=== PATIENT | female | born 1995 | race Caucasian/White ===

== ENCOUNTER 2017-04-04 06:46 | Inpatient (IN) ==
[2017-04-04] MEDS: LACTATED RINGERS 1,000 ML IV SCH (07:20)
[2017-04-04] MEDS ORDERED: ONDANSETRON 4 MG/2 ML VIAL IV PRN (08:38)
[2017-04-04] MEDS ORDERED: FAMOTIDINE 20 MG/2 ML VIAL IV ONE (09:08)
[2017-04-04] MEDS ORDERED: CITRIC ACID/SODIUM CITRATE 30 ML UDCUP PO ONE ×2 (09:17→14:00)
[2017-04-04 09:45] LABS: Basophils % 0.3 % (0.0-0.8); Eosinophils # 0.1 10*3/uL (0.0-0.87); Eosinophils % 0.5 % (0.00-10.9); Hematocrit 31.1 VOL% (35.7-47.0); Hemoglobin 10.5 GM/DL (12.0-16.0); Immature Granulocytes % 0.7 %; Immature Granulocytes Absolute 0.07 #; Lymphocytes # 1.5 10*3/uL (1.4-4.0); Lymphocytes % 16.1 % (21.3-54.2); Mean Corpuscular HGB Conc 33.8 GM/DL (32-36); Mean Corpuscular Hemoglobin 27 PG (27-34); Mean Corpuscular Volume 79.1 FL (87-102); Mean Platelet Volume 10.2 FL (9.6-12.0); Monocytes # 0.8 10*3/uL (0.11-0.8); Monocytes % 7.9 % (1.7-12.7); Neutrophils % 74.5 % (38.7-73.9); Platelet Count 219 T/CUMM (130-400); Red Blood Count 3.93 MC/CUMM (3.8-5.5); Red Cell Distribution Width 13.4 % (9.3-17.3); White Blood Count 9.5 T/CUMM (4-12)
[2017-04-04 10:15] LABS: Albumin 2.5 G/DL (3.4-5.0); Bilirubin,Total 0.8 MG/DL (0.2-1.0); Osmolality,Calculated 273.5 MOS/KG (273-304); Potassium 3.7 MMOL/L (3.5-5.1); Total Protein 5.7 G/DL (6.4-8.3)
[2017-04-04] MEDS ORDERED: PHENYLEPHRINE 1 MG/10 ML SYRINGE IV ONE (12:00)
[2017-04-04] MEDS ORDERED: ONDANSETRON 4 MG/2 ML VIAL ONE (12:00)
[2017-04-04] MEDS ORDERED: OXYTOCIN/LR 20 UNIT/1,000 ML BAG IV ONE (14:11)
[2017-04-04] MEDS ORDERED: ceFAZolin 2,000 MG in PREMIX 1 EACH IV ONE (14:11)
--- NOTE | 2017-04-04 14:27 | History and Physical Update ---
History and Physical Update - Dictation Physical: refer to scanned H&P - Physical Exam Mental Status: alert and oriented Heart: regular rate and rhythm Lung: clear to auscultation Abdomen: within normal limits Vitals: within normal limits
[2017-04-04] MEDS ORDERED: RHO(D) IMMUNE GLOBULIN 300 MCG SYRINGE IM ONE (15:01)
[2017-04-04] MEDS ORDERED: ACETAMINOPHEN 325 MG TABLET PO PRN (15:01)
--- NOTE | 2017-04-04 15:05 | Operative Note ---
Pre-op diagnosis: Previous delivery, for repeat Post-op diagnosis: same Procedure: Repeat low transverse delivery Patient was taken the operating room, administered a spinal anesthetic and sterilely prepped and draped in the supine position with a Gottlieb catheter in place. A lower abdominal transverse incision was made through the skin and carried downward to the anterior rectus sheath. Individual bleeding sites were fulgurated for hemostasis. The anterior rectus sheath was incised transversely and dissected away from the underlying rectus muscle. Rectus muscle was divided in the midline and retracted bilaterally. Peritoneum was elevated with a pair of hemostats and the peritoneum incised with Metzenbaum scissors and extended longitudinally under direct visualization. 4 blade was placed in the lower portion of the incision and vesicouterine fold identified. This was elevated and incised transversely with Metzenbaum scissors and the bladder dissected away from the lower uterine segment. Transverse incision was made with scissors through the lower uterine segment and membranes were reached the myometrium was expanded digitally with pressure and the membranes ruptured with an Allis clamp. A hand was grasp into the lower uterine segment and the head grasped and delivered into the incision. The head was stabilized with a single forceps blade and delivered with fundal pressure. The nasopharynx was suctioned and the cord clamped and cut. was transferred to the warmer. The placenta was delivered manually and Pitocin drip administered. The uterus was externalized and placed on traction. Inner layer of the myometrium was closed with a running interlocking stitch of 1-0 Vicryl. The outer layer was closed with a running stitch of 1-0 Vicryl. The vesicouterine fold was closed with running stitch of 1-0 Vicryl. Uterus was replaced in the abdomen and the abdomen irrigated with normal saline. The peritoneum was elevated and closed with running suture of 2-0 Vicryl. Rectus muscle was reapproximated in the midline with running stitch of 2-0 Vicryl. The anterior rectus sheath was closed with a running interlocking suture of 1-0 Vicryl in laterally and meeting in the midline. Stay sutures were placed either side of the midline time. The fat was irrigated and closed with running suture of 2-0 Vicryl. Again was closed with a running subcuticular suture of 3-0 Vicryl. Dermabond was placed on the wound. Anesthesia: spinal Surgeon / Physician: Logan Colunga Condition: stable Disposition: post procedure unit Results - Labs CBC & BMP: 04/04/17 09:04 04/04/17 09:04 Discharge Plan - Discharge Medications No Action No Known Home Medications [No Known Home Medications] - Follow Up or Referral - Forms/Instructions
[2017-04-04] MEDS ORDERED: TISSUE ADHESIVE 1 EACH APPLICATOR TOP ONE (15:27)
[2017-04-04] MEDS ORDERED: fentaNYL 100 MCG/2 ML VIAL ONE (16:32)
[2017-04-04] MEDS ORDERED: MORPHINE 10 MG/10 ML VIAL ONE (16:32)
[2017-04-04] MEDS ORDERED: ePHEDrine 50 MG/ML AMP ONE (16:32)
--- NOTE | 2017-04-04 16:40 | Anesthesia Post-Op ---
Anesthesia Post OP - Post Ansesthetic Evaluation Patient seen in post op: Yes Resp: within normal limits CV: within normal limits Mental: within normal limits Temp: within normal limits Jeit-[id number]: within normal limits Nausea and Vomiting: within normal limits Pain: within normal limits
[2017-04-04] MEDS: IBUPROFEN 800 MG TABLET PO PRN (19:20)
[2017-04-04] MEDS: DOCUSATE SODIUM 100 MG CAPSULE PO SCH (22:24)
[2017-04-05] MEDS: LACTATED RINGERS 1,000 ML IV SCH ×4 (00:19→06:41)
[2017-04-05 05:55] LABS: Basophils % 0.2 % (0.0-0.8); Eosinophils % 0.4 % (0.00-10.9); Hematocrit 26.7 VOL% (35.7-47.0); Hemoglobin 8.9 GM/DL (12.0-16.0); Immature Granulocytes % 0.5 %; Immature Granulocytes Absolute 0.05 #; Lymphocytes # 1.6 10*3/uL (1.4-4.0); Lymphocytes % 16.4 % (21.3-54.2); Mean Corpuscular HGB Conc 33.3 GM/DL (32-36); Mean Corpuscular Hemoglobin 27 PG (27-34); Mean Corpuscular Volume 79.9 FL (87-102); Mean Platelet Volume 10.1 FL (9.6-12.0); Monocytes # 0.8 10*3/uL (0.11-0.8); Monocytes % 8.6 % (1.7-12.7); Neutrophils % 73.9 % (38.7-73.9); Platelet Count 198 T/CUMM (130-400); Red Blood Count 3.34 MC/CUMM (3.8-5.5); Red Cell Distribution Width 13.6 % (9.3-17.3); White Blood Count 9.5 T/CUMM (4-12)
[2017-04-05] MEDS: DOCUSATE SODIUM 100 MG CAPSULE PO SCH ×2 (08:30→20:50)
[2017-04-05] MEDS: MAGNESIUM HYDROXIDE SUSP 30 ML UDCUP PO PRN ×2 (08:30→22:00)
[2017-04-05] MEDS: SIMETHICONE CHEW 80 MG TABLET PO PRN ×2 (08:30→22:05)
[2017-04-05] MEDS ORDERED: MULTIVITAMIN (PRENATAL) TABLET PO SCH (09:00)
--- NOTE | 2017-04-05 09:17 | OB/GYN Progress Note ---
Assessment and Plan (1) Status post repeat low transverse section Status: Acute Assessment and plan: Continue to advance progress today, anticipate discharge tomorrow. 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 Exam ATM SERVICER - Constitutional Vitals: Vital Signs Temp Pulse Resp BP Pulse Ox 04/05/17 07:50 97.6 F 97 H 20 112/63 99 04/05/17 04:00 96.9 F L 95 H 18 108/56 99 04/05/17 00:00 97.5 F L 93 H 20 120/62 99 04/04/17 21:30 91 H 19 131/74 97 04/04/17 20:30 99 H 20 125/68 97 04/04/17 19:30 97.2 F L 90 19 127/61 96 04/04/17 18:59 95 H 19 134/74 96 04/04/17 18:30 97.7 F 92 H 19 130/67 97 04/04/17 11:49 98.3 F 95 H 20 126/73 97 General appearance: normal weight - Head Head exam: Present: normal inspection - Respiratory Respiratory exam: Present: clear to auscultation bilaterally. Absent: accessory muscle use - GI/Abdominal GI/Abdominal exam: Present: normal bowel sounds, mass (Fundus 2 fingers below the umbilicus nontender, incision is healing well dressing is dry). Absent: guarding, tenderness - Extremities Exam Extremities exam: Present: normal inspection - Back Exam Back exam: Present: normal inspection - Neurological Exam Neurological exam: Present: alert, oriented X3 - Psychiatric Psychiatric exam: Present: normal affect, normal mood - Skin Skin exam: Present: normal color, warm, dry Results - Labs CBC & BMP: 04/05/17 05:33 04/04/17 09:04
[2017-04-05] MEDS: IBUPROFEN 800 MG TABLET PO PRN ×2 (10:21→21:50)
[2017-04-05] MEDS ORDERED: ACETAMINOPHEN 500 MG TABLET PO PRN (15:50)
[2017-04-05] MEDS ORDERED: ACETAMINOPHEN 500 MG TABLET ONE (15:51)
[2017-04-06 07:14] VITALS: BP 156/68
--- NOTE | 2017-04-06 08:57 | Discharge Summary ---
Hospital Course - Hospital Course Hospital Course: This patient was admitted at 35 weeks gestation with the onset of labor. She has a previous delivery without complications. Dr. Demar Beal assumed her care during my absence and perform for repeat delivery with problems. Her postoperative care has been completely uneventful, and she is ready to go home today. Diagnosis - Discharge Diagnosis (1) Status post repeat low transverse section Status: Acute Specialty Discharge - Follow Up or Referrals Follow up with: Logan Colunga DO [Physician] - Discharge Plan - Discharge Data Disposition: Disch To Home/Self Care Condition at Discharge: Stable Discharge Diet: advance to your usual diet Activity: resume usual activities as tolerated Hygiene: may shower Weight Bearing at Discharge: weight bear as tolerated Driving: not until seen by doctor Contact your physician if you experience:: fever over 101, Difficulty voiding, Redness or swelling, Nausea/Vomiting, Shortness of breath, Bleeding, pain uncontrolled by pain medications - Discharge Medications New HYDROcodone/ACETAMIN 5-325 [[place] 5-325] 1 - 2 tablet PO Q6H PRN #30 tablet PRN Reason: Pain Severe (8-10) Ibuprofen 600 mg PO Q4-6H PRN #30 tablet PRN Reason: Pain - Follow Up or Referral Follow Up: Logan Colunga DO [Physician] - - Forms/Instructions Instructions: Section (DC), Surgical Site Infections (GEN), Bleeding (DC) Exam - Constitutional Vitals: Period Temp Pulse Resp BP Sys/Sellers Pulse Ox Last 24 Hr 97.5 F-98.9 F 91-112 18-20 109-156/62-77 97-98 General appearance: no acute distress - Head Head exam: Present: normal inspection - Cardiovascular Cardiovascular exam: Present: regular rate and rhythm - GI/Abdominal GI/Abdominal exam: Present: normal bowel sounds, soft. Absent: tenderness - Back Exam Back exam: Present: normal inspection - Neurological Exam Neurological exam: Present: alert, oriented X3 - Psychiatric Psychiatric exam: Present: normal affect, normal mood DS: Provider Date of admission: 04/04/17 06:46 Primary care physician: . No PCP Attending physician on admission: Logan Colunga DO Consults: 04/04/17 08:38 Consult to Anesthesiology [CONS] Routine Consulting Provider: Reason for Anesthesiology: Epidural Consult Comment: Epidural for pain managment 04/04/17 10:40 Consult to Dietitian [CONS] Routine Reason for Dietitian: Dietary Consult 04/04/17 15:01 Consult to Chemistry Research Assistant [CONS] Routine Consult Chemistry Research Assistant: Breast Feeding Discharging clinician: Logan Colunga DO Expected date of discharge: 04/06/17
== END 2017-04-06 13:00 | disposition home or self-care (01) | DRG 766 ==
LOC: N.LD 06:46 → N.OB 08:22
PROVIDERS: ADMIT Obstetrics & Gynecology; ATTEND Obstetrics & Gynecology
PROC: LDCSECT (ICD-10-PCS; 2017-04-04 08:30)